=== PATIENT | male | born 1990 | race African-American/Black ===

== ENCOUNTER 2017-01-30 12:31 | Inpatient (IN) | payer OTHER ==
[~2017-01-30] VITALS: Ht 175.3 cm; Wt 64.2 kg
[2017-01-30 13:24] LABS: EOSINOPHIL (%) 0.7 % (0-5); HEMATOCRIT 39.9 % (38.0-50.0); IMMATURE GRANULOCYTE (%) 0.4 % (0.0-0.7); INSTRUMENT ABS NEUTROPHIL CT 3.8 K/uL; LYMPHOCYTE COUNT 1.2 K/uL (1.0-2.8); MCHC 34.6 G/DL (30.0-36.0); MCV 89.7 FL (86-99); MEAN PLAT.VOLUME 8.7 uM^3 (9.0-12.4); MONOCYTE (%) 8.2 % (3-12); MONOCYTE COUNT 0.5 K/uL (0-0.8); NEUTROPHIL (%) 68.6 % (45-76); NEUTROPHIL COUNT 3.8 K/uL (1.8-6.4); PLATELET COUNT 267 K/uL (156-360); RBC DIS.WIDTH-CV 12.3 % (11.8-14.6); RBC DIS.WIDTH-SD 40.7 % (39-53); RED BLOOD COUNT 4.45 M/uL (4.00-5.50); WHITE BLOOD COUNT 5.5 K/uL (4.1-10.2)
[2017-01-30 13:35] LABS: CHLORIDE 103 mEq/L (99-109); POTASSIUM 4.1 mEq/L (3.7-5.4); SODIUM 139 mEq/L (136-147)
[2017-01-30 13:37] LABS: GLUCOSE 114 mg/dL (70-99)
[2017-01-30 13:38] LABS: ANION GAP 9 MEQ/L (2-14)
[2017-01-30 13:40] LABS: GFR ESTIMATE (CALCULATED) > 59 mL/min/; SERUM ETHYL ALCOHOL < 10 mg/dL
[2017-01-30 13:41] LABS: UREA NITROGEN (BUN) 14 mg/dL (9-23)
[2017-01-30 15:20] LABS: ADD MIUA? YES; BILIRUBIN NEGATIVE; BLOOD NEGATIVE; COLOR YELLOW ((YELLOW)); GLUCOSE (STRIP) NEGATIVE; KETONES NEGATIVE; LEUKOCYTES NEGATIVE; NITRITE NEGATIVE; PROTEIN (STRIP) NEGATIVE; SPECIFIC GRAVITY 1.021 (1.000-1.030); UROBILINOGEN 0.2 MG/DL (0.2-1.0)
[2017-01-30 15:27] LABS: BACTERIA RARE /HPF; EPITHELIAL CELLS RARE /HPF; MUCUS 2+ /LPF; RED BLOOD CELLS 0-5 /HPF (0-5); WHITE BLOOD CELLS 0-5 /HPF (0-5)
[2017-01-30 15:35] LABS: AMPHETAMINE NEGATIVE (500 ng/mL); BARBITURATES NEGATIVE (200 ng/mL); BENZODIAZEPINES PRESUMPTIVE POSITIVE (150 ng/mL); COCAINE NEGATIVE (150 ng/mL); INTERNAL CONTROLS VALID? YES; METHADONE NEGATIVE (200 ng/mL); METHAMPHETAMINE NEGATIVE (500 ng/mL); OPIATES (MORPHINE) NEGATIVE (100 ng/mL); OXYCODONE NEGATIVE (100 ng/mL); PHENCYCLIDINE NEGATIVE (25 ng/mL); PROPOXYPHENE NEGATIVE (300 ng/mL); THC CANNABINOIDS PRESUMPTIVE POSITIVE (50 ng/mL); TRICYCLIC ANTIDEPRESSANTS NEGATIVE (300 ng/mL)
[2017-01-30 15:36] LABS: ADD MEDTOX COMMENT Y
[2017-01-30 16:07] LABS: BENZODIAZEPINES, URINE SCREEN POSITIVE (200 ng/mL)
[2017-01-30 17:05] VITALS: BP 157/89
[2017-01-30 17:06] VITALS: BP 1857/89
[2017-01-31 07:37] VITALS: BP 145/75
[2017-01-31 15:45] VITALS: BP 136/88
[2017-02-01 07:34] VITALS: BP 116/79
[2017-02-01] MEDS ORDERED: DESYREL100 MG PO ×2 (08:14→08:28)
[2017-02-01] MEDS ORDERED: ESCITALOPRAM OX10 MG PO (08:14)
== END 2017-02-01 10:32 | disposition home or self-care (01) | DRG 882 ==
LOC: EME 12:31 → 1WEST 15:00 → EDOF 15:00 → 1WEST 15:00 → ENRESERV 16:29 → 1WEST 16:50
PROVIDERS: Emergency Medicine
DX: F43.23 Adjustment disorder with mixed anxiety and depressed mood (principal); R45.851 Suicidal ideations; F12.10 Cannabis abuse, uncomplicated; F60.3 Borderline personality disorder; S61.511A Laceration without foreign body of right wrist, initial encounter; S61.512A Laceration without foreign body of left wrist, initial encounter; X78.9XXA Intentional self-harm by unspecified sharp object, initial encounter
CPT/HCPCS: 80048; 81003; 84999; 85025; 90837; 99281; 99284; G0480

== ENCOUNTER 2017-09-25 21:51 | Emergency (ER) | payer OTHER ==
[~2017-09-25] VITALS: Ht 175.3 cm; Wt 69.8 kg
[~2017-09-25 21:51] MED LIST: DESYREL100 MG PO; ESCITALOPRAM OX10 MG PO
[2017-09-25 21:57] VITALS: BP 130/65
== END 2017-09-26 01:20 | disposition left against medical advice (07) ==
LOC: EME 21:51
DX: G43.909 Migraine, unspecified, not intractable, without status migrainosus (principal); Z53.21 Procedure and treatment not carried out due to patient leaving prior to being seen by health care provider
CPT/HCPCS: 93005